=== PATIENT | female | born 1960 | race Caucasian/White ===

== ENCOUNTER 2017-04-12 09:20 | Emergency (ER) | payer MEDICAID ==
[~2017-04-12] VITALS: Ht 152.4 cm; Wt 63.5 kg
[2017-04-12 09:31] VITALS: BP 142/39
--- NOTE | 2017-04-12 09:32 | NUR ---
Patient ambulated to bed 7. RN evaluating patient at bedside.
--- NOTE | 2017-04-12 09:35 | NUR ---
PT PRESENTS TO ER FOR EVALUATION OF CONFUSION AND SLURRED SPEECH SINCE EARLY THIS AM. PT STATES SHE'S BEEN FEELING VERY STRESSED RECENTLY AND HER BLOOD SUGAR HAS BEEN GOING UP. AT 0330 SHE CHECKED HER BLOOD SUGAR AND IT WAS 340, SO SHE ADMINISTERED 40U OF LANTUS INSULIN THAT SHE HAD TAKEN IN THE PAST, BUT WAS NO LONGER UTILIZING HER PCP CHANGED HER TO PO METFORMIN AND NOW SHE FEELS VERY CONFUSED AND IS SLURRING HER SPEECH. HX DM,HTN, VERTIGO..DENIES N/V/D; SKIN IS PINK/WARM/DRY; AAOX4 WITH EVEN AND STEADY GAIT; LUNGS CLEAR BL; HR EVEN AND REGULAR; PT DENIES ANY FEVER, CP, SOB, OR COUGH AT THIS TIME; PATIENT STATES PAIN OF 0/10 AT THIS TIME; VSS; PATIENT POSITIONED FOR COMFORT; HOB ELEVATED; BEDRAILS UP X2; BED DOWN.
[2017-04-12] MEDS ORDERED: METFORMIN500 MG PO (09:37)
[2017-04-12] MEDS ORDERED: ZESTRIL40 M1 PO (09:37)
--- NOTE | 2017-04-12 09:55 | NUR ---
Dr. Farah evaluating patient at bedside.
--- NOTE | 2017-04-12 10:33 | NUR ---
PT C/O HEADACHE ASKED FOR PAIN MEDICATION;NOTIFIED ER MD.
[2017-04-12] MEDS ORDERED: HYDROcodone/APAP 10/325 MG 1 TAB TAB PO ONE (10:40)
[2017-04-12] MEDS ORDERED: ONDANSETRON 4 MG ODT PO ONE (10:40)
--- NOTE | 2017-04-12 11:05 | NUR ---
PT SLEEPING;NO ACUTE DSITRESS NOTED;WILL CONTINUE TO MONITOR PT.
--- NOTE | 2017-04-12 11:38 | NUR ---
PT CALLED HER SISTER TO PICK HER UP.
--- NOTE | 2017-04-12 11:42 | NUR ---
PT ASKED FOR FOOD;OFFERED CRACKERS AND PT IS GARTEFUL;NO ACUTE DISTRESS NOTED;WILL CONTINUE TO MONITOR PT.
--- NOTE | 2017-04-12 12:45 | NUR ---
PT IS ASKING WHAT TIME SHE CAN GO HOME;EXPALINED TO PT THAT IS BUSY BUT HE IS WORKING HIS BEST TO ATTEND TO HER NEEDS AND TO DISCHARGE HER SOON.
--- NOTE | 2017-04-12 13:16 | NUR ---
Patient discharged with v/s stable. Written and verbal after care instructions given and explained. Patient alert, oriented and verbalized understanding of instructions. Ambulatory with steady gait. All questions addressed prior to discharge. ID band removed. Patient advised to follow up with PMD. Rx of METFORMIN given. Patient educated on indication of medication including possible reaction and side effects. Opportunity to ask questions provided and answered.
[2017-04-12 13:17] VITALS: BP 103/67
== END 2017-04-12 13:16 | disposition home or self-care (01) ==
LOC: MED 09:20
DX: E11.9 Type 2 diabetes mellitus without complications (principal); N28.9 Disorder of kidney and ureter, unspecified; F32.9 Major depressive disorder, single episode, unspecified; I10 Essential (primary) hypertension; F17.210 Nicotine dependence, cigarettes, uncomplicated; Z88.8 Allergy status to other drugs, medicaments and biological substances
CPT/HCPCS: 36415; 80053; 81001; 81025; 82948; 85025; 87086; 99284; S0119

== ENCOUNTER 2017-06-22 10:59 | Emergency (ER) | payer MEDICAID, OTHER ==
[~2017-06-22] VITALS: Ht 154.9 cm; Wt 71.7 kg
[~2017-06-22 10:59] MED LIST: LISI40TA12 PO; METF500T64 PO
[2017-06-22 11:09] VITALS: BP 144/60
--- NOTE | 2017-06-22 11:20 | NUR ---
Patient takent from ED lobby to XRAY via wheelchair by tech.
--- NOTE | 2017-06-22 11:51 | NUR ---
Patient transferred to bed 7 via wheelchair by tech. RN evaluating patient at bedside.
--- NOTE | 2017-06-22 11:52 | NUR ---
57F BIB FAMILY C/O RT ANKLE PAIN & SWELLING S/P FALL X YESTERDAY; PT STATES NO LOC AT TIME OF INCIDENT.HX: HTN, DM. AAOX4 WITH EVEN AND STEADY GAIT; LUNGS CLEAR BL; HR EVEN AND REGULAR; PATIENT STATES PAIN OF 6/10 AT THIS TIME; PATIENT POSITIONED FOR COMFORT; R LEG ELEVATED; BEDRAILS UP X2; BED DOWN. ER MD MADE AWARE OF PT STATUS.
--- NOTE | 2017-06-22 11:52 | NUR ---
57F BIB FAMILY C/O RT ANKLE PAIN & SWELLING; PAIN RADIATES TO R LOWER LEG & R THIGH ; S/P FALL X YESTERDAY; PT STATES NO LOC AT TIME OF INCIDENT.HX: HTN, DM. AAOX4 WITH EVEN AND STEADY GAIT; LUNGS CLEAR BL; HR EVEN AND REGULAR; PATIENT STATES PAIN OF 6/10 AT THIS TIME; PATIENT POSITIONED FOR COMFORT; R LEG ELEVATED; BEDRAILS UP X2; BED DOWN. ER MD MADE AWARE OF PT STATUS.
[2017-06-22] MEDS ORDERED: KETOROLAC 60 MG/2 ML VIAL IM ONE (12:25)
[2017-06-22] MEDS ORDERED: ONDANSETRON 4 MG ODT PO ONE (12:25)
--- NOTE | 2017-06-22 12:45 | NUR ---
Patient being evaluated by DR ELLER at bedside.
--- NOTE | 2017-06-22 12:52 | NUR ---
SPLINT R ANKLE DONE BY FLOR ORR. Addendum: [facility]22/17 [facility]4 [facility]. Taught proper use, patient returned demo.
--- NOTE | 2017-06-22 12:55 | NUR ---
PT STS R ANKLE PAIN 3/10 AT THIS TIME.
[2017-06-22 13:08] VITALS: BP 134/65
--- NOTE | 2017-06-22 13:08 | NUR ---
Patient discharged with BP 134/65; DENIES HEADACHE OR DIZINESS; MD AWARE. Written and verbal after care instructions given and explained. Patient alert, oriented and verbalized understanding of instructions. Wheel Chair Assisted with to car. All questions addressed prior to discharge. ID band removed. Patient advised to follow up with PMD. Rx of LISINOPRIL, MOTRIN, NORCO & METFORMIN given. Patient educated on indication of medication including possible reaction and side effects. Opportunity to ask questions provided and answered.
== END 2017-06-22 13:08 | disposition home or self-care (01) ==
LOC: MED 10:59
DX: S82.841A Displaced bimalleolar fracture of right lower leg, initial encounter for closed fracture (principal); E11.9 Type 2 diabetes mellitus without complications; I10 Essential (primary) hypertension; Z88.7 Allergy status to serum and vaccine; Z88.8 Allergy status to other drugs, medicaments and biological substances; Z90.710 Acquired absence of both cervix and uterus; F17.200 Nicotine dependence, unspecified, uncomplicated; W18.39XA Other fall on same level, initial encounter; Y93.89 Activity, other specified; Y92.89 Other specified places as the place of occurrence of the external cause; Y99.8 Other external cause status
CPT/HCPCS: 29515; 73610; 73630; 82948; 96372; 99284; J1885; S0119